=== PATIENT | male | born 1940 | race Two or more races ===

== ENCOUNTER 2021-07-02 12:37 | Observation (INO) | payer OTHER ==
[2021-07-02 13:20] VITALS: BMI 16.2
[2021-07-02] MEDS ORDERED: LORazepam 2 MG/ML SDV VIAL IVPUSH ONE (14:40)
[2021-07-02 14:57] LABS: BASO % 0.9 % (0-2.0); EOS % 0.7 % (0-4.5); HEMATOCRIT 32.8 % (35.4-49); HEMOGLOBIN 11.3 GM/dL (11.7-16.9); INR 1.03 (0.83-1.09); MCHC 34.5 g/dl (32.0-35.9); MEAN CELL VOLUME 92.7 fl (80-96); MEAN PLT VOLUME 7.5 fl (7.5-11.1); MONO % 8.4 % (3.8-10.2); PLATELET COUNT 387 10^3/uL (134-434); PROTHROMBIN TIME (PATIENT) 11.8 SEC (9.7-13.0); RBC 3.53 M/mm3 (4.00-5.60); RDW 12.6 % (11.9-15.9); WHITE BLOOD COUNT 6.8 K/mm3 (4.0-10.0)
[2021-07-02 15:09] LABS: CHLORIDE 107 mmol/L (98-107); SODIUM 141 mmol/L (136-145)
[2021-07-02 15:14] LABS: CALCIUM 9.5 mg/dL (8.5-10.1)
[2021-07-02 15:15] LABS: ANION GAP 5 MMOL/L (8-16); CO2 29 mmol/L (21-32); GLUCOSE,RANDOM 88 mg/dL (74-106)
[2021-07-02 15:18] LABS: BILIRUBIN,TOTAL 0.6 mg/dL (0.2-1); CREATININE 0.9 mg/dL (0.55-1.3); SGOT/AST 26 U/L (15-37); SGPT/ALT 18 U/L (13-61)
[2021-07-02 15:20] LABS: ALK PHOS 88 U/L (45-117)
[2021-07-02 15:46] LABS: MAGNESIUM 2.4 mg/dL (1.8-2.4)
[2021-07-02 15:54] LABS: ACTIVATED PTT 16.6 SECONDS (25.2-36.5)
[2021-07-03 00:03] LABS: EPI CELLS >36 /uL (0-25.1); HYALINE CASTS 2 /uL (0-3.1); PH,URINE 6.5 (5.0-8.0); URINE APPEARANCE CLOUDY; URINE BACTERIA 40 /uL (0-1359); URINE BILIRUBIN NEGATIVE (NEGATIVE); URINE COLOR YELLOW; URINE GLUCOSE (UA) NEGATIVE (NEGATIVE); URINE KETONE 1+ (NEGATIVE); URINE LEUK ESTERASE NEGATIVE (NEGATIVE); URINE NITRITE NEGATIVE (NEGATIVE); URINE PROTEIN TRACE (NEGATIVE); URINE RBC 37 /uL (0-23.9); URINE WBC 4 /uL (0-25.8)
[2021-07-03 07:10] LABS: BASO % 0.8 % (0-2.0); EOS % 0.5 % (0-4.5); HEMATOCRIT 39.3 % (35.4-49); HEMOGLOBIN 12.7 GM/dL (11.7-16.9); LYMPH % 15.5 % (8-40); MCHC 32.2 g/dl (32.0-35.9); MEAN CELL VOLUME 93.3 fl (80-96); MEAN PLT VOLUME 7.5 fl (7.5-11.1); MONO % 7.2 % (3.8-10.2); PLATELET COUNT 442 10^3/uL (134-434); RBC 4.21 M/mm3 (4.00-5.60); RDW 12.4 % (11.9-15.9); WHITE BLOOD COUNT 6.6 K/mm3 (4.0-10.0)
[2021-07-03 07:45] LABS: CHLORIDE 103 mmol/L (98-107); SODIUM 142 mmol/L (136-145)
[2021-07-03 07:52] LABS: ANION GAP 7 MMOL/L (8-16); BLOOD UREA NITROGEN 23.1 mg/dL (7-18); CALCIUM 9.9 mg/dL (8.5-10.1); CO2 32 mmol/L (21-32)
[2021-07-03 07:53] LABS: ALBUMIN 3.3 g/dl (3.4-5.0); GLUCOSE,RANDOM 75 mg/dL (74-106)
[2021-07-03 07:54] LABS: ALK PHOS 103 U/L (45-117); BILIRUBIN,TOTAL 0.7 mg/dL (0.2-1); MAGNESIUM 2.4 mg/dL (1.8-2.4); SGPT/ALT 20 U/L (13-61)
[2021-07-03 07:55] LABS: SGOT/AST 28 U/L (15-37)
[2021-07-03 07:57] LABS: TOT PROT 7.7 g/dl (6.4-8.2)
[2021-07-03] MEDS ORDERED: MELATONIN 5 MG TABLETS PO PRN (08:01)
[2021-07-03] MEDS ORDERED: DOCUSATE SODIUM 100 MG CAPSULE (FP) PO ONE ×2 (09:47→22:16)
[2021-07-03] MEDS ORDERED: carBAMazepine 200 MG TABLET ONE ×2 (09:47→22:15)
[2021-07-03] MEDS ORDERED: QUEtiapine FUMARATE 25 MG TABLET ONE ×2 (09:47→22:15)
[2021-07-03] MEDS: DOCUSATE SODIUM 100 MG CAPSULE (FP) PO SCH ×2 (09:54→22:23)
[2021-07-03] MEDS: QUEtiapine FUMARATE 25 MG TABLET PO SCH ×2 (09:54→22:24)
[2021-07-03] MEDS: carBAMazepine 200 MG TABLET PO SCH ×2 (09:55→22:24)
[2021-07-03] MEDS ORDERED: ATORVASTATIN CA 10 MG TABLET (FP) ONE (22:15)
[2021-07-03] MEDS: ATORVASTATIN CA 10 MG TABLET (FP) PO SCH (22:24)
[2021-07-04] MEDS: carBAMazepine 200 MG TABLET PO SCH ×2 (10:34→21:33)
[2021-07-04] MEDS: QUEtiapine FUMARATE 25 MG TABLET PO SCH ×2 (10:34→21:32)
[2021-07-04] MEDS: DOCUSATE SODIUM 100 MG CAPSULE (FP) PO SCH (10:34)
[2021-07-04] MEDS ORDERED: DOCUSATE NA 100 MG/10 ML UNIT-DOSE CUPS PO PRN (17:05)
[2021-07-04] MEDS ORDERED: QUEtiapine FUMARATE 25 MG TABLET PO ONE (17:05)
[2021-07-04] MEDS: ATORVASTATIN CA 10 MG TABLET (FP) PO SCH (21:33)
[2021-07-05] MEDS: QUEtiapine FUMARATE 25 MG TABLET PO SCH ×2 (12:04→21:21)
[2021-07-05] MEDS: carBAMazepine 200 MG TABLET PO SCH ×2 (12:04→21:22)
[2021-07-05] MEDS: ATORVASTATIN CA 10 MG TABLET (FP) PO SCH (21:21)
[2021-07-06 06:07] VITALS: PULSE 88
[2021-07-06] MEDS: QUEtiapine FUMARATE 25 MG TABLET PO SCH (11:21)
[2021-07-06] MEDS: carBAMazepine 200 MG TABLET PO SCH (11:22)
[2021-07-06 19:32] VITALS: BP 110/53; TEMP 96.7
== END 2021-07-06 17:00 ==
LOC: JER 12:37 → JERBED 15:04 → J4S 07-03 22:58
PROVIDERS: ADMIT Internal Medicine; ATTEND Internal Medicine
PROC: 3E033NZ Introduction of Analgesics, Hypnotics, Sedatives into Peripheral Vein, Percutaneous Approach (ICD-10-PCS; principal; 2021-07-02)
DX: S00.91XA Abrasion of unspecified part of head, initial encounter (principal); R26.81 Unsteadiness on feet; E78.5 Hyperlipidemia, unspecified; F31.9 Bipolar disorder, unspecified; F41.9 Anxiety disorder, unspecified; F03.90 Unspecified dementia, unspecified severity, without behavioral disturbance, psychotic disturbance, mood disturbance, and anxiety; Z20.822 Contact with and (suspected) exposure to COVID-19; W18.39XA Other fall on same level, initial encounter; Y93.89 Activity, other specified; Y92.099 Unspecified place in other non-institutional residence as the place of occurrence of the external cause; K59.00 Constipation, unspecified; G91.9 Hydrocephalus, unspecified; G47.00 Insomnia, unspecified; J32.9 Chronic sinusitis, unspecified
CPT/HCPCS: 36415; 70450-TC; 71045-TC-FY; 72125-TC; 80053; 80156; 81003; 82550; 83735; 84443; 84484; 85025; 85610; 85730; 93005; 93010; 93306-TC; 93880-TC; 96374; 99285-25; C9803; G0378; U0003; U0005